=== PATIENT | male | born 1990 | race Two or more races ===

== ENCOUNTER 2022-11-21 10:11 | Emergency (ER) | payer MEDICAID ==
[~2022-11-21] VITALS: Ht 165.1 cm; Wt 81.6 kg
[2022-11-21 10:20] VITALS: BP 136/72; TEMP 98.2; O2SAT 99
--- NOTE | 2022-11-21 10:20 | NUR ---
BIBS FOR ALISA REMOVAL ON HIS SCALP THAT WAS PLACE ON 11/14. VITAL ARE WITHIN NORMAL LIMITS. AWAITING MD ALFARO.
--- NOTE | 2022-11-21 10:34 | NUR ---
sonu removed by pa
--- NOTE | 2022-11-21 10:51 | NUR ---
PT RETURNED FROM CT
== END 2022-11-21 10:44 | disposition home or self-care (01) ==
LOC: ER 10:18
DX: S01.01XD Laceration without foreign body of scalp, subsequent encounter (principal); R51.9 Headache, unspecified; Z60.2 Problems related to living alone; X58.XXXD Exposure to other specified factors, subsequent encounter
CPT/HCPCS: 70450-TC